=== PATIENT | female | born 1975 | race Caucasian/White ===

== ENCOUNTER → 2016-12-01 | Outpatient (CLI) | payer OTHER | LOC: EMI 08:38 | DX: I63.9 Cerebral infarction, unspecified (principal); R94.02 Abnormal brain scan | CPT/HCPCS: 70553; A9577; J7050 ==

== ENCOUNTER 2020-12-04 00:21 | Emergency (ER) | payer OTHER ==
[~2020-12-04 00:21] MED LIST: ASPIRIN CHEWABL81 MG PO; BOTOX200 UNIT SQ; COLACE 100MG C100 MG PO; EFFEXOR 25 MG T25 MG PO; IBUPROFEN600 MG PO; IMITREX100 MG PO; LORTAB 7.5-3251 EACH PO; NORCO 7.5-3251 EACH PO; PHENERGAN 25 MG25 M1 PO; PRAVACHOL20 MG PO; PROTONIX40 MG PO
[2020-12-04 01:47] LABS: HEMOGLOBIN 14.3 gm/dl (12.3-15.3); RED BLOOD COUNT 4.7 M/UL (4.00-5.10); WHITE BLOOD COUNT 12.3 K/UL (4.5-11.0)
[2020-12-04 02:25] LABS: BUN/CREATININE RATIO 16 (0-10)
[2020-12-04] MEDS ORDERED: CLEOCIN HCL150 MG PO (03:27)
[2020-12-04] MEDS ORDERED: ZOFRAN ODT 4 MG4 MG PO (03:27)
[2020-12-04] MEDS ORDERED: LODINE CAP 300300 MG PO (03:27)
[2020-12-04] MEDS ORDERED: HYDROCODON-ACE1 EAC4 PO (03:38)
== END 2020-12-04 04:40 | disposition home or self-care (01) ==
LOC: ER1 00:21
PROVIDERS: Physician Assistant
DX: K04.7 Periapical abscess without sinus (principal); Z90.710 Acquired absence of both cervix and uterus; Z90.49 Acquired absence of other specified parts of digestive tract; Z86.73 Personal history of transient ischemic attack (TIA), and cerebral infarction without residual deficits; F17.210 Nicotine dependence, cigarettes, uncomplicated; Z88.5 Allergy status to narcotic agent; Z88.8 Allergy status to other drugs, medicaments and biological substances
CPT/HCPCS: 70487; 80053; 85025; 85652; 86140; 96365; 96375; 99284; J1100; J1885; J2405; Q9963

== ENCOUNTER 2022-01-28 00:40 | Emergency (ER) | payer OTHER ==
[~2022-01-28 00:40] MED LIST changes: +CLEOCIN HCL150 MG PO; +HYDROCODON-ACE1 EAC4 PO; +LODINE CAP 300300 MG PO; +ZOFRAN ODT 4 MG4 MG PO
[2022-01-28 02:09] LABS: HEMOGLOBIN 13.6 gm/dl (12.3-15.3); RED BLOOD COUNT 4.49 M/UL (4.00-5.10); WHITE BLOOD COUNT 12.3 K/UL (4.5-11.0)
[2022-01-28 02:39] LABS: BUN/CREATININE RATIO 24 (0-10)
[2022-01-28] MEDS ORDERED: MIRALAX17 GM PO (04:32)
[2022-01-28] MEDS ORDERED: ZOFRAN ODT 4 MG4 MG PO (04:32)
[2022-01-28] MEDS ORDERED: BENTYL 20MG TAB20 MG PO (04:40)
== END 2022-01-28 05:00 | disposition home or self-care (01) ==
LOC: ER1 00:40
DX: R10.84 Generalized abdominal pain (principal); R10.817 Generalized abdominal tenderness; R11.0 Nausea; R19.5 Other fecal abnormalities; Z86.73 Personal history of transient ischemic attack (TIA), and cerebral infarction without residual deficits; Z90.49 Acquired absence of other specified parts of digestive tract; Z90.710 Acquired absence of both cervix and uterus; Z88.5 Allergy status to narcotic agent; Z88.8 Allergy status to other drugs, medicaments and biological substances; F17.210 Nicotine dependence, cigarettes, uncomplicated
CPT/HCPCS: 80053; 81001; 82550; 82553; 83690; 84484; 85025; 87077; 87086; 87186; 93005; 96374; 96375; 99284; J1885; J2405; Q9967